=== PATIENT | male | born 1955 | race Asian ===

== ENCOUNTER 2017-09-05 17:17 | Emergency (ER) | payer OTHER ==
[~2017-09-05] VITALS: Wt 72.5 kg
[2017-09-05] MEDS ORDERED: TETRACAINE 0.5% 4 ML OPH LEFT EYE ONE (18:30)
[2017-09-05] MEDS ORDERED: FLUORESCEIN STRIP LEFT EYE ONE (18:30)
[2017-09-05] MEDS ORDERED: OFLO5DRO46 LEFT EYE (19:05)
[2017-09-05 19:23] VITALS: BP 150/90; PULSE 72; RESP 20; TEMP 98
--- NOTE | 2017-09-05 21:41 | ERD ---
ER Documentation Chief Complaint Chief Complaint fb in l. eye HPI 61-year-old male complaining of abrasion to left eye. Patient was driving yesterday and feels limited to his eye. Patient tried to rub his eye with a Kleenex but seems to have worsened the situation. Denies any contacts use. Wears reading glasses. Denies any visual deficits. Has sensitivity to light. Left eye has been watering more than usual. ROS All systems reviewed and are negative except as per history of present illness. Medications Home Meds Active Scripts Ofloxacin* (Ocuflox*) 0.3%-5 Ml Ophth Drops, 1 DROP LEFT EYE QID, #1 BOTTLE Prov:EDUAR ONTIVEROS PA-C 09/05/17 PMhx/Soc Medical and Surgical Hx: pt denies Medical Hx, pt denies Surgical Hx Hx Alcohol Use: Yes (quit a long time ago) Hx Substance Use: No Hx Tobacco Use: Yes (quit a long time ago) Smoking Status: Former smoker Physical Exam Vitals Vital Signs Date Time Temp Pulse Resp B/P Pulse Ox O2 Delivery O2 Flow Rate FiO2 09/05/17 19:23 98.0 72 20 150/90 98 Room Air 09/05/17 17:21 98.0 758 20 172/88 97 Physical Exam GENERAL: The patient is well-appearing, well-nourished, in no acute distress HEENT: Atraumatic. Conjunctivae are pink. Pupils equal, round, and reactive to light. Injection noted to the right sclera. Tympanic membranes clear bilaterally. Oropharynx clear. No nystagmus or photophobia. NECK: C-spine is soft and supple. There is no meningismus. There is no cervical lymphadenopathy. CHEST: Clear to auscultation bilaterally. There are no rales, wheezes or rhonchi. HEART: Regular rate and rhythm. No murmurs, clicks, rubs or gallops. No S3 or S4. . No gross cervical, axillary, or inguinal lymphadenopathy. Results 24 hrs Current Medications Medications (Trade) Dose Ordered Sig/Yumi Route PRN Reason Start Time Stop Time Status Last Admin Dose Admin Tetracaine HCl (Tetracaine 0.5% Steri-Unit Abbey) 1 drop ONCE ONCE LEFT EYE 09/05/17 18:30 09/05/17 18:31 DC Fluorescein Sodium (Gucvv-R-Eidbs) 1 strip ONCE ONCE LEFT EYE 09/05/17 18:30 09/05/17 18:31 DC Procedures/MDM ER course: Fluorescein stain done of the left eye. No obvious foreign body. Abrasion noted over the sclera. No lacerations or globe rupture seen. No dendritic lesions. MDM: 61-year-old male complaining of pain to the left eye. I have low suspicion for retained foreign body. The patient does have a corneal abrasion appreciated on exam. Patient will be given prescription for antibiotic drops. Patient is told to follow-up with primary care. Patient is told symptoms change or worsen to return the ER. All questions answered discharge Departure Diagnosis: Primary Impression: Corneal abrasion Condition: Stable Patient Instructions: Corneal Abrasion Referrals: [facility] YOU HAVE RECEIVED A MEDICAL SCREENING EXAM AND THE RESULTS INDICATE THAT YOU DO NOT HAVE A CONDITION THAT REQUIRES URGENT TREATMENT IN THE EMERGENCY DEPARTMENT. FURTHER EVALUATION AND TREATMENT OF YOUR CONDITION CAN WAIT UNTIL YOU ARE SEEN IN YOUR DOCTORS OFFICE WITHIN THE NEXT 1-2 DAYS. IT IS YOUR RESPONSIBILITY TO MAKE AN APPOINTMENT FOR FOLOW-UP CARE. IF YOU HAVE A PRIMARY DOCTOR --you should call your primary doctor and schedule an appointment IF YOU DO NOT HAVE A PRIMARY DOCTOR YOU CAN CALL OUR PHYSICIAN REFERRAL HOTLINE AT IF YOU CAN NOT AFFORD TO SEE A PHYSICIAN YOU CAN CHOSE FROM THE FOLLOWING [facility] CLINICS [facility] [address] [facility]. [facility] [address] [facility] [facility] [address] [facility] [facility] [address] [facility]. [facility] [address] [facility]. [facility]. [address] Additional Instructions: FOLLOW UP WITH YOUR PRIMARY CARE PHYSICIAN TOMORROW.Return to this facility if you are not improving as expected. EDUAR ONTIVEROS PA-C Sep 05, 2017 21:41
--- NOTE | 2017-09-05 21:41 | ERD ---
ER Documentation Chief Complaint Chief Complaint fb in l. eye HPI 61-year-old male complaining of abrasion to left eye. Patient was driving yesterday and feels limited to his eye. Patient tried to rub his eye with a Kleenex but seems to have worsened the situation. Denies any contacts use. Wears reading glasses. Denies any visual deficits. Has sensitivity to light. Left eye has been watering more than usual. ROS All systems reviewed and are negative except as per history of present illness. Medications Home Meds Active Scripts Ofloxacin* (Ocuflox*) 0.3%-5 Ml Ophth Drops, 1 DROP LEFT EYE QID, #1 BOTTLE Prov:EDUAR ONTIVEROS PA-C 09/05/17 PMhx/Soc Medical and Surgical Hx: pt denies Medical Hx, pt denies Surgical Hx Hx Alcohol Use: Yes (quit a long time ago) Hx Substance Use: No Hx Tobacco Use: Yes (quit a long time ago) Smoking Status: Former smoker Physical Exam Vitals Vital Signs Date Time Temp Pulse Resp B/P Pulse Ox O2 Delivery O2 Flow Rate FiO2 09/05/17 19:23 98.0 72 20 150/90 98 Room Air 09/05/17 17:21 98.0 758 20 172/88 97 Physical Exam GENERAL: The patient is well-appearing, well-nourished, in no acute distress HEENT: Atraumatic. Conjunctivae are pink. Pupils equal, round, and reactive to light. Injection noted to the right sclera. Tympanic membranes clear bilaterally. Oropharynx clear. No nystagmus or photophobia. NECK: C-spine is soft and supple. There is no meningismus. There is no cervical lymphadenopathy. CHEST: Clear to auscultation bilaterally. There are no rales, wheezes or rhonchi. HEART: Regular rate and rhythm. No murmurs, clicks, rubs or gallops. No S3 or S4. . No gross cervical, axillary, or inguinal lymphadenopathy. Results 24 hrs Current Medications Medications (Trade) Dose Ordered Sig/Yumi Route PRN Reason Start Time Stop Time Status Last Admin Dose Admin Tetracaine HCl (Tetracaine 0.5% Steri-Unit Abbey) 1 drop ONCE ONCE LEFT EYE 09/05/17 18:30 09/05/17 18:31 DC Fluorescein Sodium (Sfjnn-Y-Iqktm) 1 strip ONCE ONCE LEFT EYE 09/05/17 18:30 09/05/17 18:31 DC Procedures/MDM ER course: Fluorescein stain done of the left eye. No obvious foreign body. Abrasion noted over the sclera. No lacerations or globe rupture seen. No dendritic lesions. MDM: 61-year-old male complaining of pain to the left eye. I have low suspicion for retained foreign body. The patient does have a corneal abrasion appreciated on exam. Patient will be given prescription for antibiotic drops. Patient is told to follow-up with primary care. Patient is told symptoms change or worsen to return the ER. All questions answered discharge Departure Diagnosis: Primary Impression: Corneal abrasion Condition: Stable Patient Instructions: Corneal Abrasion Referrals: [facility] YOU HAVE RECEIVED A MEDICAL SCREENING EXAM AND THE RESULTS INDICATE THAT YOU DO NOT HAVE A CONDITION THAT REQUIRES URGENT TREATMENT IN THE EMERGENCY DEPARTMENT. FURTHER EVALUATION AND TREATMENT OF YOUR CONDITION CAN WAIT UNTIL YOU ARE SEEN IN YOUR DOCTORS OFFICE WITHIN THE NEXT 1-2 DAYS. IT IS YOUR RESPONSIBILITY TO MAKE AN APPOINTMENT FOR FOLOW-UP CARE. IF YOU HAVE A PRIMARY DOCTOR --you should call your primary doctor and schedule an appointment IF YOU DO NOT HAVE A PRIMARY DOCTOR YOU CAN CALL OUR PHYSICIAN REFERRAL HOTLINE AT IF YOU CAN NOT AFFORD TO SEE A PHYSICIAN YOU CAN CHOSE FROM THE FOLLOWING [facility] CLINICS [facility] [address] [facility] [facility] [address] [facility] [address] [facility] [facility] [address] [facility] [address] [facility] [facility]. [address] Additional Instructions: FOLLOW UP WITH YOUR PRIMARY CARE PHYSICIAN TOMORROW.Return to this facility if you are not improving as expected. EDUAR ONTIVEROS PA-C Sep 05, 2017 21:41
--- NOTE | 2017-09-05 21:41 | ERD ---
ER Documentation Chief Complaint Chief Complaint fb in l. eye HPI 61-year-old male complaining of abrasion to left eye. Patient was driving yesterday and feels limited to his eye. Patient tried to rub his eye with a Kleenex but seems to have worsened the situation. Denies any contacts use. Wears reading glasses. Denies any visual deficits. Has sensitivity to light. Left eye has been watering more than usual. ROS All systems reviewed and are negative except as per history of present illness. Medications Home Meds Active Scripts Ofloxacin* (Ocuflox*) 0.3%-5 Ml Ophth Drops, 1 DROP LEFT EYE QID, #1 BOTTLE Prov:EDUAR ONTIVEROS PA-C 09/05/17 PMhx/Soc Medical and Surgical Hx: pt denies Medical Hx, pt denies Surgical Hx Hx Alcohol Use: Yes (quit a long time ago) Hx Substance Use: No Hx Tobacco Use: Yes (quit a long time ago) Smoking Status: Former smoker Physical Exam Vitals Vital Signs Date Time Temp Pulse Resp B/P Pulse Ox O2 Delivery O2 Flow Rate FiO2 09/05/17 19:23 98.0 72 20 150/90 98 Room Air 09/05/17 17:21 98.0 758 20 172/88 97 Physical Exam GENERAL: The patient is well-appearing, well-nourished, in no acute distress HEENT: Atraumatic. Conjunctivae are pink. Pupils equal, round, and reactive to light. Injection noted to the right sclera. Tympanic membranes clear bilaterally. Oropharynx clear. No nystagmus or photophobia. NECK: C-spine is soft and supple. There is no meningismus. There is no cervical lymphadenopathy. CHEST: Clear to auscultation bilaterally. There are no rales, wheezes or rhonchi. HEART: Regular rate and rhythm. No murmurs, clicks, rubs or gallops. No S3 or S4. . No gross cervical, axillary, or inguinal lymphadenopathy. Results 24 hrs Current Medications Medications (Trade) Dose Ordered Sig/Yumi Route PRN Reason Start Time Stop Time Status Last Admin Dose Admin Tetracaine HCl (Tetracaine 0.5% Steri-Unit Abbey) 1 drop ONCE ONCE LEFT EYE 09/05/17 18:30 09/05/17 18:31 DC Fluorescein Sodium (Gfriq-W-Xbzom) 1 strip ONCE ONCE LEFT EYE 09/05/17 18:30 09/05/17 18:31 DC Procedures/MDM ER course: Fluorescein stain done of the left eye. No obvious foreign body. Abrasion noted over the sclera. No lacerations or globe rupture seen. No dendritic lesions. MDM: 61-year-old male complaining of pain to the left eye. I have low suspicion for retained foreign body. The patient does have a corneal abrasion appreciated on exam. Patient will be given prescription for antibiotic drops. Patient is told to follow-up with primary care. Patient is told symptoms change or worsen to return the ER. All questions answered discharge Departure Diagnosis: Primary Impression: Corneal abrasion Condition: Stable Patient Instructions: Corneal Abrasion Referrals: [facility] YOU HAVE RECEIVED A MEDICAL SCREENING EXAM AND THE RESULTS INDICATE THAT YOU DO NOT HAVE A CONDITION THAT REQUIRES URGENT TREATMENT IN THE EMERGENCY DEPARTMENT. FURTHER EVALUATION AND TREATMENT OF YOUR CONDITION CAN WAIT UNTIL YOU ARE SEEN IN YOUR DOCTORS OFFICE WITHIN THE NEXT 1-2 DAYS. IT IS YOUR RESPONSIBILITY TO MAKE AN APPOINTMENT FOR FOLOW-UP CARE. IF YOU HAVE A PRIMARY DOCTOR --you should call your primary doctor and schedule an appointment IF YOU DO NOT HAVE A PRIMARY DOCTOR YOU CAN CALL OUR PHYSICIAN REFERRAL HOTLINE AT IF YOU CAN NOT AFFORD TO SEE A PHYSICIAN YOU CAN CHOSE FROM THE FOLLOWING [facility] CLINICS [facility] [address] [facility]. [facility] [address] [facility] [address] [facility] [facility] [address] [facility]. [facility] [address] [facility]. [facility]. [address] Additional Instructions: FOLLOW UP WITH YOUR PRIMARY CARE PHYSICIAN TOMORROW.Return to this facility if you are not improving as expected. EDUAR ONTIVEROS PA-C Sep 05, 2017 21:41
== END 2017-09-05 19:23 | disposition home or self-care (01) ==
LOC: FTE 17:17
DX: S05.02XA Injury of conjunctiva and corneal abrasion without foreign body, left eye, initial encounter (principal); X58.XXXA Exposure to other specified factors, initial encounter; Y92.9 Unspecified place or not applicable; Z87.891 Personal history of nicotine dependence
CPT/HCPCS: 99283